=== PATIENT | male | born 1955 | race Caucasian/White ===

== ENCOUNTER → 2019-09-11 | Outpatient (CLI) | payer MEDICARE | END | disposition home or self-care (01) | LOC: LABWHC1 10:09 | PROVIDERS: ATTEND Internal Medicine Endocrinology, Diabetes & Metabolism | DX: E11.65 Type 2 diabetes mellitus with hyperglycemia (principal) | CPT/HCPCS: 36415; 82947; 84681 ==

== ENCOUNTER → 2019-10-01 | Outpatient (CLI) | payer MEDICARE ==
[2019-10-01 15:36] LABS: African American GFR (CKD) 107.9 (60.0-200.0); Albumin 4.4 g/dL (3.80-4.90); Albumin/Globulin Ratio 1.91 (1.60-3.17); Anion Gap 9.6 mmol/L (4.00-12.00); BUN/Creat Ratio 26.25 Ratio (12.00-20.00); Calcium 9.3 mg/dL (8.7-10.3); Carbon Dioxide 27.4 mmol/L (21.6-31.8); Chol/HDL Ratio 4.93; Globulin 2.3 g/dL (1.6-3.3); LDL Cholesterol,Calculated 54.2 mg/dL (0.0-131.0); Non-African American GFR(CKD) 93.1 (60.0-200.0); Potassium 4.4 mmol/L (3.5-5.5); Total Bilirubin 0.5 mg/dL (0.3-1.2); Total Protein 6.7 g/dL (6.2-8.2); VLDL Calculation 51.8 mg/dL (5.00-40.00)
[2019-10-01 16:51] LABS: Hemoglobin A1C 9.2 % (4.0-6.0)
[2019-10-01 19:23] LABS: Urine Creatinine 185.4 mg/dL
== END | disposition home or self-care (01) ==
LOC: LABWHC1 10:07
PROVIDERS: ATTEND Internal Medicine Endocrinology, Diabetes & Metabolism
DX: E11.65 Type 2 diabetes mellitus with hyperglycemia (principal)
CPT/HCPCS: 36415; 80053; 80061; 82043; 82570; 83036; 84443

== ENCOUNTER → 2019-11-05 | Outpatient (CLI) | payer MEDICARE ==
--- NOTE | 2019-11-05 13:35 | EST ---
EXERCISE STRESS AGE: 64 SEX: M HT: 6'0" WT: 230 lbs. PROTOCOL: Jonah STAGE: 2 DURATION OF EXERCISE: 4:44 HEART RATE REST: 111 BLOOD PRESSURE REST: 145/94 MAXIMUM HEART RATE ACHIEVED: 146 MAXIMUM BLOOD PRESSURE: 166/91 85% MPHR: 131 100% MPHR: 154 METS: 6.6 INDICATIONS: Chest pain. CLINICAL INFORMATION: Baseline EKG shows sinus rhythm with right bundle branch block with secondary ST-T wave changes. Patient exercised on Jonah protocol for a total of 4.5 minutes achieving 6 METS 95% of predicted maximal heart rate without chest pain or diagnostic ST-segment depression. CONCLUSION: 1. Poor exercise tolerance. 2. Inconclusive EKG part of the stress test due to baseline EKG abnormalities. 3. Consider stress imaging study for further evaluation. MMODL / IJN: [id number] /
== END | disposition home or self-care (01) ==
LOC: RADNMMAIN 08:27
PROVIDERS: ATTEND Family Medicine
DX: R94.31 Abnormal electrocardiogram [ECG] [EKG] (principal); R06.00 Dyspnea, unspecified
CPT/HCPCS: 93017

== ENCOUNTER → 2021-03-04 | Outpatient (CLI) | payer MEDICARE ==
[2021-03-04 18:51] LABS: BUN/Creat Ratio 22.21 Ratio (12.00-20.00); Globulin 2.5 g/dL (1.6-3.3)
[2021-03-04 18:52] LABS: African American GFR (CKD) 107.3 (60.0-200.0); Albumin 4.7 g/dL (3.8-4.9); Albumin/Globulin Ratio 1.85 (1.60-3.17); Anion Gap 13.7 mmol/L (4.00-12.00); Blood Urea Nitrogen 17.7 mg/dL (9.0-27.0); Calcium 9.5 mg/dL (8.7-10.3); Carbon Dioxide 21.5 mmol/L (21.6-31.8); Chol/HDL Ratio 4.83 Ratio; HDL Cholesterol 29.6 mg/dL (40.00-60.00); Non-African American GFR(CKD) 92.6 (60.0-200.0); Potassium 4.2 mmol/L (3.5-5.5); Total Bilirubin 0.5 mg/dL (0.30-1.20); Total Protein 7.2 g/dL (6.2-8.2); VLDL Calculation 40.4 mg/dL (5.00-40.00)
== END | disposition home or self-care (01) ==
LOC: LABWHC1 10:01
PROVIDERS: ATTEND Internal Medicine Endocrinology, Diabetes & Metabolism
DX: E11.65 Type 2 diabetes mellitus with hyperglycemia (principal)
CPT/HCPCS: 36415; 80053; 80061; 82043; 82570; 83036; 84443

== ENCOUNTER → 2022-08-31 | Outpatient (CLI) | payer MEDICARE ==
[~2022-08-31] MED LIST: REGADENOSON 0.4 MG/5 ML SYRINGE IV PRN
--- NOTE | 2022-08-31 11:28 | NM ---
EXAMINATION TYPE: NM stress lexiscan cardiolite DATE OF EXAM: 08/31/2022 COMPARISON: 03/10/2014 HISTORY: Chest pain TECHNIQUE: After the intravenous administration of 10.0 mCi Tc 99m Sestamibi - Cardiolite resting SP ECT images acquired 45 minutes post injection. The patient received 0.4mg Lexiscan, 26.2 mCi Tc 99m Sestamibi - Stress images obtained [address] injection FINDINGS: Review of stress and rest SPECT images demonstrates fixed reduced uptake involving the inferior wall myocardium with corresponding wall motion defect. There appears to be mismatched uptake involving the lateral wall myocardium compatible with an area of stress-induced reversible ischemia.. Gated jett sis shows an estimated left ventricular ejection fraction of 52 %. IMPRESSION: 1. Findings compatible with an area of stress-induced reversible ischemia involving the lateral wall of the myocardium.. A [place] level critical message alert has been initiated for Mami Palmer DO via the [employer] Critical Results System on 08/31/2022 11:25 AM. This message alert has been sent to Mami Palmer DO via the preferences provided by the clinician for the receipt of Radiology Critical Findings. Message ID [id number].
--- NOTE | 2022-08-31 17:54 | CA ---
Lexiscan Nuclear Stress Test Report Name: Jason Dejesus Exam Date: 08/31/2022 09:56 Exam Location: [place] Stress Ht (in): 72 Wt (lb): 230 BSA: 2.26 Ordering Phys: Mami Palmer DO Referring Phys: Yessi Cancino PAC Technologist: DILLAN,, Age: 67 Gender: M : 1955 Procedure CPT: Indications: I10; I208; I25.10 ICD-10 Codes: Patient History: Chest pain and short of breath Medications: Meds past 24 hrs: Pretest Chest Pain: STRESS TEST Lexiscan Protocol Exercise Duration (min:sec): 02:[address] Depressions (mm): Angina Score: Khan Score: Resting HR (bpm): 90 Peak HR (bpm): 110 Resting BP (mmHg): 179 / 98 Peak BP (mmHg): 185 / 100 MPHR: 151 Target HR: 128 % MPHR: 73 METS: 1.0 Total Dose: Peak Dose: Atropine: Double Product: 53482 BP Response: Stress Termination: Infusion complete Stress Symptoms: No chest pain or symptoms Stress Summary: ECG ANALYSIS Resting ECG: Stress ECG: CONCLUSIONS Baseline EKG revealed a normal sinus rhythm with a right bundle branch block pattern leftward axis and wide QRS. With Lexiscan administration the heart rate went up from 91-110 bpm. The blood pressure changed from 179/98-176/92. Patient was asymptomatic. By EKG criteria this is a inconclusive Lexiscan stress test because of resting EKG changes. The nuclear scan results which are more pertinent will be reported with radiologist Dr. Jf Knight MD (Electronically Signed) Final Date: 31 August 2022 17:53
== END | disposition home or self-care (01) ==
LOC: RADNMMAIN 07:25
PROVIDERS: ATTEND Family Medicine
DX: I10 Essential (primary) hypertension (principal); I25.10 Atherosclerotic heart disease of native coronary artery without angina pectoris
CPT/HCPCS: 93017; 78452; A9500; J2785

== ENCOUNTER → 2022-09-04 | Outpatient (CLI) | payer MEDICARE ==
[2022-09-04 16:23] LABS: African American GFR (CKD) 91.1 (60.0-200.0); Anion Gap 9.6 mmol/L (10.00-18.00); Blood Urea Nitrogen 15.8 mg/dL (9.0-27.0); Carbon Dioxide 27.5 mmol/L (20.0-27.5); Non-African American GFR(CKD) 78.6 (60.0-200.0); Potassium 4.8 mmol/L (3.5-5.5)
[2022-09-04 16:43] LABS: HCT 47.3 % (39.6-50.0); HGB 14.5 g/dL (13.0-17.0); MCHC 30.7 g/dL (32.0-37.0); MCV 81.7 fL (80.0-97.0); NRBC Per 100 WBC 0 /100 WBCS (0.0-0.0); Platelet Count 199 X 10*3/uL (140-440); RBC 5.79 X 10*6/uL (4.40-5.60); RDW 17.5 % (11.5-14.5); WBC 6.81 X 10*3/uL (4.50-10.00)
== END | disposition home or self-care (01) ==
LOC: LABPAT 08:59
PROVIDERS: ATTEND Internal Medicine Cardiovascular Disease
DX: Z01.812 Encounter for preprocedural laboratory examination (principal); R94.39 Abnormal result of other cardiovascular function study; R07.2 Precordial pain
CPT/HCPCS: 36415; 80051; 82565; 84520; 85027

== ENCOUNTER 2022-09-07 05:35 | Day surgery (SDC) | payer MEDICARE ==
[2022-09-05 09:03] VITALS: BMI 32.0
[2022-09-07] MEDS ORDERED: SODIUM CHLORIDE 0.9% 1,000 ML in EMPTY BAG 1 BAG IV SCH (05:36)
[2022-09-07] MEDS ORDERED: ALPRAZolam 0.5 MG TAB PO PRN (05:36)
[2022-09-07] MEDS ORDERED: NITROGLYCERIN SL TABS 0.4 MG TAB SUBLINGUAL PRN (05:36)
[2022-09-07] MEDS ORDERED: ALPRAZolam 0.25 MG TAB PO PRN (05:36)
[2022-09-07 06:51] LABS: Glucose,Whole Blood 210 mg/dL (70-110)
[2022-09-07 06:55] VITALS: RESP 16; TEMP 97.6
[2022-09-07] MEDS ORDERED: HEPARIN SODIUM,PORCINE 10,000 UNIT in SODIUM CHLORIDE 0.9% 1,000 ML IRRIGATION PRN (07:00)
[2022-09-07] MEDS ORDERED: HEPARIN SODIUM,PORCINE 2,500 UNIT in SODIUM CHLORIDE 0.9% 250 ML IRRIGATION PRN (07:00)
[2022-09-07] MEDS ORDERED: ATORVASTATIN 80 MG TAB PO ONE (07:00)
[2022-09-07] MEDS ORDERED: ASPIRIN 325 MG TAB PO ONE (07:00)
[2022-09-07] MEDS ORDERED: HEPARIN SODIUM 1,000 UN/ML (10ML VL) ONE (07:20)
[2022-09-07] MEDS ORDERED: fentaNYL (PF) 50 MCG/ML 2 ML AMP ONE (07:20)
[2022-09-07] MEDS ORDERED: VERAPAMIL 2.5 MG/ML 2 ML AMP ONE (07:20)
[2022-09-07] MEDS: MIDAZOLAM 2 MG/2 ML VIAL IV ONE ×2 (07:35→07:43)
[2022-09-07] MEDS ORDERED: fentaNYL (PF) 50 MCG/ML 2 ML AMP IV ONE (07:35)
[2022-09-07] MEDS ORDERED: LIDOCAINE 1% INJ 10MG/ML (5 ML VIAL-PF) SQ ONE (07:39)
[2022-09-07] MEDS ORDERED: VERAPAMIL SYRINGE (5 MG/10 ML) INTRAARTER ONE (07:43)
[2022-09-07] MEDS: HEPARIN SODIUM 1,000 UN/ML (10ML VL) IV ONE ×3 (07:47→08:27)
[2022-09-07] MEDS ORDERED: PRASUGREL 10 MG TAB ONE (08:20)
[2022-09-07] MEDS ORDERED: PRASUGREL 10 MG TAB PO ONE (08:22)
[2022-09-07] MEDS ORDERED: NITROGLYCERIN 1000MCG/10ML SYRINGE INTRACORON ONE (08:23)
[2022-09-07] MEDS ORDERED: IOPAMIDOL-370 100ML BTL INJ ONE (08:27)
--- NOTE | 2022-09-07 08:49 | CC ---
CARDIAC CATHETERIZATION REPORT INDICATIONS: Chest pain and shortness of breath with activity and ischemia involving lateral wall. PROCEDURE NOTE: After obtaining informed consent, left heart catheterization and coronary angiogram were performed via right radial artery using standard [place] catheters. The patient tolerated the procedure well without any obvious immediate complications, received moderate conscious sedation. Total sedation time was 18 minutes. Right radial artery access was obtained using Seldinger technique, and 6-Azeri sheath was placed. Catheters and wires were floated into the ascending aorta under fluoroscopic guidance. The patient received verapamil and heparin per protocol. FINDINGS: 1. Left ventricular end-diastolic pressure is 16 mm. There is no significant gradient across the aortic valve. 2. Left Ventriculogram: Left ventriculogram is not performed .. 3. Angiographic Data: a.Right coronary artery is a large dominant vessel, appears calcified but is free of significant stenosis. Left main coronary artery is a normal-sized vessel and is free of disease, divides into left anterior descending coronary artery and circumflex coronary artery. Circumflex coronary artery shows a focal 95% stenosis in the mid to distal area with [id number] atherosclerotic plaque in the proximal area. LAD appears diffusely diseased and calcified with 2 focal areas of stenosis that seemed to be around 40% to 50%. CONCLUSIONS: 95% focal stenosis involving circumflex coronary artery. PLAN: The patient will undergo angioplasty with stent placement of the same by Dr. Olvera, the on-call home health billing specialist. GOYO / YVONNE: [id number] /
[2022-09-07] MEDS ORDERED: MAG HYDROX/AL HYDROX/SIMETH 30 ML CUP PO PRN (10:03)
[2022-09-07] MEDS ORDERED: ZOLPIDEM 5 MG TAB PO PRN (10:03)
[2022-09-07] MEDS ORDERED: RX INFO: IV CONTRAST WAS GIVEN 1 EACH MISC MISCELLANE PRN (10:03)
[2022-09-07] MEDS ORDERED: ATROPINE SULFATE 0.1 MG/ML 10ML SYRINGE IV PRN (10:03)
--- NOTE | 2022-09-07 10:11 | LTR ---
Dear Sonny: I performed cardiac catheterization on Jason Dejesus. Detailed catheterization note is on the record. In brief, the cardiac catheterization revealed severe stenosis involving circumflex coronary artery, which corresponds to the ischemia noted on his stress test and the patient will undergo angioplasty with stent placement of the same. Thank you for giving us the privilege to participate in this pleasant gentleman. GOYO / YVONNE: [id number] /
[2022-09-07] MEDS ORDERED: INSULIN LISPRO (For Pump) 100 UNIT/ML VIAL SQ-PUMP SCH (10:15)
[2022-09-07 10:21] VITALS: PULSE 78
[2022-09-07 12:49] VITALS: BP 125/71
[2022-09-07] MEDS ORDERED: FENOFIBRATE 160 MG TAB PO SCH (21:00)
[2022-09-07] MEDS ORDERED: ATORVASTATIN 40 MG TAB PO SCH (21:00)
--- NOTE | 2022-09-07 21:25 | P.PRCINT ---
Percutaneous Coronary Int. - Percutaneous Coronary Intervention Percutaneous Coronary Intervention: PROCEDURES PERFORMED: Left heart coronary angiography, PCI circumflex with a 3.0 x 15mm Xience ATA INDICATION: Abnormal stress test, class III angina HISTORY: Patient has been having chest pain with exertion consistent with angina despite antianginals and had abnormal stress test in the lateral wall. Patient underwent diagnostic heart catheterization with a 90% mid circumflex stenosis and therefore is asked to perform PCI. PROCEDURE: After the risks, benefits and alternatives of the above mentioned procedure explained in detail with the patient, informed consent was obtained. Patient had already been taken to the catheterization lab and prepped and draped in usual fashion. A 6-Jamaican sheath had already been placed in the right radial artery. The decision was made to perform PCI of circumflex. Heparin was given. A 6- Jamaican CLS 3.5 catheter disease engage the left main. A 0.014 BMW wire was advanced the distal circumflex. Predilatation was performed with a 3.0 x 8 mm balloon. Next a 3.0 x 15 mm Xience ATA was placed in the mid circumflex. Preintervention there was 90% stenosis and DL-3 flow and postintervention there is less than 10% stenosis with DL 3 flow. The right radial sheath was removed and a TR band was placed with hemostasis achieved. The patient tolerated the procedure well. Patient was transported back to the post catheterization holding area in stable condition. Conscious Sedation: Patient was monitored under the direct supervision of vision of myself for conscious sedation using Versed and fentanyl for a total duration of 18 minutes HEMODYNAMICS: Aorta: 138/72 SELECTIVE CORONARY ARTERIOGRAPHY: LEFT MAIN: The left main is a large caliber vessel which bifurcates into the LAD and circumflex. There is no significant stenosis. LEFT ANTERIOR DESCENDING CORONARY ARTERY: LAD is a large caliber vessel which wraps around to the apex. There is a mid to distal LAD 40-50% stenosis and otherwise diffuse mild luminal irregularities. LEFT CIRCUMFLEX CORONARY ARTERY: Left circumflex is a moderate caliber vessel with a focal 90% stenosis and otherwise diffuse 20-30% stenoses. RIGHT CORONARY ARTERY: The right coronary artery was not imaged, see separate re port. FINAL IMPRESSION: 1. CAD as described above including 90% mid circumflex stenosis 2. S/p PCI circumflex with a 3.0 x 15mm Xience ATA PLAN: 1. Aggressive risk factor modification per most recent ACC/AHA guidelines. 2. Continue dual antiplatelets with aspirin and Effient for 12 months.
[2022-09-08] MEDS ORDERED: MELOXICAM 7.5 MG TAB PO SCH (09:00)
[2022-09-08] MEDS ORDERED: PRASUGREL 10 MG TAB PO SCH (09:00)
[2022-09-08] MEDS ORDERED: METOPROLOL SUCCINATE (ER) 50 MG TAB.ER.24H PO SCH (09:00)
[2022-09-08] MEDS ORDERED: ESCITALOPRAM 10 MG TAB PO SCH (09:00)
[2022-09-08] MEDS ORDERED: ASPIRIN 81 MG PO SCH (09:00)
[2022-09-08] MEDS ORDERED: LOSARTAN 50 MG TAB PO SCH (09:00)
[2022-09-08] MEDS ORDERED: OXYBUTYNIN XL 5 MG TAB.ER.24 PO SCH (09:00)
[2022-09-08] MEDS ORDERED: ISOSORBIDE MONONITRATE ER 30 MG TAB.ER.24H PO SCH (09:00)
== END 2022-09-07 12:34 | disposition home or self-care (01) ==
LOC: CATHCVL 05:35
PROVIDERS: ATTEND Internal Medicine Cardiovascular Disease
DX: I25.10 Atherosclerotic heart disease of native coronary artery without angina pectoris (principal)
CPT/HCPCS: 93458; C9600; C1769 ×2; C1887; C1725; C1874; J2250; J2001; J3010; J1644; Q9967

== ENCOUNTER → 2024-01-25 | Outpatient (CLI) | payer MEDICARE ==
[2024-01-25 15:47] LABS: ALT 12 U/L (10-49); AST 15 U/L (14-35); Albumin 4.5 g/dL (3.8-4.9); Albumin/Globulin Ratio 1.88 Ratio (1.60-3.17); Alkaline Phosphatase 75 U/L (41-126); BUN/Creat Ratio 18.12 Ratio (12.00-20.00); Blood Urea Nitrogen 14.5 mg/dL (9.0-27.0); Carbon Dioxide 23.2 mmol/L (21.6-31.8); Chloride 106 mmol/L (96-109); Globulin 2.4 g/dL (1.6-3.3); Glucose 99 mg/dL (70-110); LDL Cholesterol,Calculated 135.8 mg/dL (0.0-131.0); Potassium 4.3 mmol/L (3.5-5.5); Sodium 140 mmol/L (135-145); Total Bilirubin 0.5 mg/dL (0.3-1.2); Total Protein 6.9 g/dL (6.2-8.2)
== END | disposition home or self-care (01) ==
LOC: LABWHC1 10:56
PROVIDERS: ATTEND Internal Medicine Endocrinology, Diabetes & Metabolism
DX: E11.65 Type 2 diabetes mellitus with hyperglycemia (principal)
CPT/HCPCS: 36415; 80053; 80061; 82043; 82570; 83036; 84443